=== PATIENT | female | born 1970 | race Caucasian/White ===

== ENCOUNTER 2021-11-11 18:39 | Emergency (ER) | payer OTHER ==
[2021-11-11] MEDS ORDERED: KETOROLAC TROMETHAMINE 30 MG/1 ML VIAL IM ONE (19:35)
[2021-11-11] MEDS ORDERED: KETOROLAC TROMETHAMINE 30 MG/1 ML VIAL ONE (19:42)
== END 2021-11-11 20:45 | disposition home or self-care (01) ==
LOC: JERFT 18:39
PROC: 3E023GC Introduction of Other Therapeutic Substance into Muscle, Percutaneous Approach (ICD-10-PCS; principal; 2021-11-11)
DX: M79.605 Pain in left leg (principal)
CPT/HCPCS: 73590-TC-LT-FY; 99284-25

== ENCOUNTER 2022-04-26 20:51 | Emergency (ER) | payer OTHER ==
[2022-04-26 20:55] VITALS: PULSE 73; TEMP 97; BMI 35.6
[2022-04-26] MEDS ORDERED: SODIUM CHLORIDE 0.9% 500 ML INFUS.BAG IV ONE (23:14)
[2022-04-26 23:23] LABS: BASO % 0.6 % (0-2.0); EOS % 7.9 % (0-4.5); HEMATOCRIT 36.4 % (32.4-45.2); HEMOGLOBIN 12.3 GM/dL (10.7-15.3); LYMPH % 32.1 % (8-40); MCHC 33.6 g/dl (32.0-36.0); MEAN CELL VOLUME 89.3 fl (80-96); MEAN PLT VOLUME 10.7 fl (7.5-11.1); MONO % 14.3 % (3.8-10.2); NEUT % 45.1 % (42.8-82.8); PLATELET COUNT 186 10^3/uL (134-434); RBC 4.08 M/mm3 (3.60-5.2); RDW 14.7 % (11.6-15.6); WHITE BLOOD COUNT 4.9 K/mm3 (4.0-10.0)
[2022-04-26 23:38] LABS: CALCIUM 8.4 mg/dL (8.5-10.1)
[2022-04-26 23:40] LABS: BLOOD UREA NITROGEN 8.5 mg/dL (7-18)
[2022-04-26 23:43] LABS: CREATININE 0.4 mg/dL (0.55-1.3)
[2022-04-26 23:44] LABS: TOT PROT 6.2 g/dl (6.4-8.2)
[2022-04-26 23:45] LABS: BILIRUBIN,TOTAL 0.5 mg/dL (0.2-1)
[2022-04-27 00:51] LABS: CHLORIDE 110 mmol/L (98-107); SODIUM 144 mmol/L (136-145)
[2022-04-27 00:52] LABS: CALCIUM 8.1 mg/dL (8.5-10.1)
[2022-04-27 00:54] LABS: BLOOD UREA NITROGEN 8.8 mg/dL (7-18); CO2 23 mmol/L (21-32); GLUCOSE,RANDOM 71 mg/dL (74-106)
[2022-04-27 00:57] LABS: CREATININE 0.4 mg/dL (0.55-1.3)
[2022-04-27 01:11] LABS: ANION GAP 12 MMOL/L (8-16)
[2022-04-27] MEDS ORDERED: MAGNESIUM SULF 50% (8.12 MEQ/2 ML-1 GM VIAL) IVPB ONE (01:26)
[2022-04-27] MEDS ORDERED: POTASSIUM CHLORIDE TABS 20 MEQ TABLET.ER (FP) PO ONE ×4 (01:27→03:14)
[2022-04-27] MEDS ORDERED: MAGNESIUM SULFATE IN WATER 2 GM/50 ML IVPB IVPB ONE (01:39)
[2022-04-27 03:21] VITALS: BP 138/81; RESP 16
== END 2022-04-27 03:22 | disposition home or self-care (01) ==
LOC: JER 20:51
DX: R19.7 Diarrhea, unspecified (principal)
CPT/HCPCS: 36415; 80048; 80053; 85025; 99283-25